=== PATIENT | female | born 1955 | race Caucasian/White ===

== ENCOUNTER 2017-11-01 05:43 | Day surgery (SDC) | payer BC ==
[2017-11-01] MEDS ORDERED: PROPOFOL 20 ML (07:40)
== END 2017-11-01 09:03 | disposition home or self-care (01) ==
LOC: GIL 05:43
DX: K57.90 Diverticulosis of intestine, part unspecified, without perforation or abscess without bleeding (principal); K64.4 Residual hemorrhoidal skin tags; E03.9 Hypothyroidism, unspecified; I10 Essential (primary) hypertension
CPT/HCPCS: 45378